=== PATIENT | female | born 1935 | race Caucasian/White ===

== ENCOUNTER 2018-10-25 02:37 | Inpatient (IN) | payer BC ==
[2018-10-25] MEDS: FUROSEMIDE 40 MG INJ IV (02:41)
[2018-10-25] MEDS: NITROGLYCERIN 2% 1 GM OINT PKT TD (02:55)
[2018-10-25 03:10] LABS: ADD MAN DIFF? NO
[2018-10-25 03:21] LABS: ABNORMAL IP MESSAGE 1; BASOPHILS % 0.3 % (0.0-2.0); EOSINOPHILS % 0.4 % (0.0-7.0); HEMATOCRIT 33.2 % (37.0-47.0); HEMOGLOBIN 11.1 g/dl (12.0-16.0); LYMPHOCYTES # 0.7 10^3/ul (0.8-2.9); LYMPHOCYTES % 10.2 % (15.0-51.0); MEAN CORPUSCULAR HEMOGLOBIN 28.5 pg (29.0-33.0); MEAN CORPUSCULAR HGB CONC 33.4 g/dl (32.0-37.0); MEAN CORPUSCULAR VOLUME 85.3 fl (82.0-101.0); MEAN PLATELET VOLUME 12.1 fl (7.4-10.4); MONOCYTE # 3.6 10^3/ul (0.3-0.9); MONOCYTES % 52.1 % (0.0-11.0); NEUTROPHIL # 2.5 10^3/ul (1.6-7.5); NEUTROPHILS % 35.9 % (39.0-77.0); PLATELET COUNT 128 10^3/UL (140-415); POSITIVE DIFF @See below; RED BLOOD COUNT 3.89 10^6/ul (4.20-5.40); RED CELL DISTRIBUTION WIDTH 11.6 % (11.5-14.5)
[2018-10-25 03:28] LABS: INR 1.18; PROTIME 15.1 Sec (11.9-14.9); PT RATIO 1.2
[2018-10-25 03:29] LABS: PARTIAL THROMBOPLASTIN TIME 30.3 Sec (23.0-35.0)
[2018-10-25 03:33] LABS: ALANINE AMINOTRANSFERASE 11 IU/L (13-69); ALBUMIN 4.7 g/dl (3.3-4.9); ALKALINE PHOSPHATASE 98 IU/L (42-121); ANION GAP 12 (5-13); ASPARTATE AMINO TRANSFERASE 29 IU/L (15-46); BILIRUBIN,INDIRECT 0.5 mg/dl (0-1.1); BILIRUBIN,TOTAL 0.5 mg/dl (0.2-1.3); BLOOD UREA NITROGEN 14 mg/dl (7-20); CALCIUM 9.5 mg/dl (8.4-10.2); CARBON DIOXIDE 26 mmol/L (21-31); CHLORIDE 100 mmol/L (97-110); CREATININE 0.57 mg/dl (0.44-1.00); GLUCOSE 204 mg/dl (70-220); POTASSIUM 3.9 mmol/L (3.5-5.1); SODIUM 138 mmol/L (135-144); TOTAL PROTEIN 8.3 g/dl (6.1-8.1)
[2018-10-25 03:45] LABS: B-TYPE NATRIURETIC PEPTIDE 1460 PG/ML (0-450); TROPONIN-I < 0.012 ng/ml (0.000-0.120)
[2018-10-25 04:01] LABS: AADO2 Arterial 139.9 mmHg (7.0-24.0); Allen Test ACCEPTAB; Arterial Base Excess -0.1 mmol/L (-3.0-3); Arterial Blood Gas Oxygen Sat 99.5 mmHG (95.0-100.0); Arterial COHb 0.3 % (0.0-3.0); Arterial Fraction of Oxyhgb 98.8 % (93.0-99.0); Arterial HCO3 25.4 mmol/L (22.0-26.0); Arterial MetHb 0.4 % (0.0-1.5); Blood Gas IEPAP 15/5; MODE MASK - BIPAP; Site Right Radial
[2018-10-25] MEDS ORDERED: ONDANSETRON 4 MG INJ IV (05:00)
[2018-10-25] MEDS ORDERED: NACL 0.9% 3 ML SYG IV (05:00)
[2018-10-25] MEDS ORDERED: NITROGLYCERIN (SL) 0.4 MG TAB SL (05:00)
[2018-10-25 06:00] LABS: CREATINE KINASE 125 IU/L (23-200)
[2018-10-25 06:09] LABS: LACTIC ACID 1.2 mmol/L (0.5-2.0)
[2018-10-25 06:12] LABS: CK INDEX 1.6; CK-MB 2.01 ng/ml (0.0-2.4)
[2018-10-25 06:28] LABS: TROPONIN-I 0.155 ng/ml (0.000-0.120)
[2018-10-25 07:50] LABS: LACTIC ACID 1.3 mmol/L (0.5-2.0)
[2018-10-25] MEDS: ASPIRIN 325 MG TAB PO (08:30)
[2018-10-25] MEDS: FUROSEMIDE 20 MG INJ IV (08:30)
[2018-10-25] MEDS: HEPARIN 5,000 UNIT/1 ML VIAL SC ×2 (08:41→22:44)
[2018-10-25] MEDS: LISINOPRIL 10 MG TAB PO ×2 (09:00→09:33)
[2018-10-25] MEDS: SOD CHLORIDE 0.9% 500 ML IV (10:36)
[2018-10-25 11:35] LABS: CREATINE KINASE 108 IU/L (23-200)
[2018-10-25 11:47] LABS: CK INDEX 2.2; CK-MB 2.42 ng/ml (0.0-2.4)
[2018-10-25 12:03] LABS: TROPONIN-I 0.499 ng/ml (0.000-0.120)
[2018-10-25] MEDS ORDERED: SOD CHLORIDE 0.9% 100 ML (16:40)
[2018-10-25] MEDS ORDERED: IOHEXOL 100 ML (16:40)
[2018-10-25] MEDS: CEFTRIAXONE 1 GM/50 ML (PMX) 50 ML IVPB (17:49)
[2018-10-25 21:50] LABS: CREATINE KINASE 131 IU/L (23-200)
[2018-10-25 21:59] LABS: CK INDEX 2.4; CK-MB 3.17 ng/ml (0.0-2.4)
[2018-10-25 22:04] LABS: TROPONIN-I 0.362 ng/ml (0.000-0.120)
[2018-10-25] MEDS: ALBUTEROL/IPRATROPIUM (NEB) 3 ML AMP HHN (22:17)
[2018-10-25] MEDS ORDERED: ALBUTEROL/IPRATROPIUM (NEB) 3 ML AMP HHN (22:30)
[2018-10-25] MEDS: hydrALAzine 20 MG INJ IV (22:32)
[2018-10-26 06:07] LABS: WHITE BLOOD COUNT 2.9 10^3/ul (4.8-10.8)
[2018-10-26 06:07] LABS: ABNORMAL IP MESSAGE 1; HEMATOCRIT 29.5 % (37.0-47.0); MEAN CORPUSCULAR HEMOGLOBIN 28.2 pg (29.0-33.0); MEAN CORPUSCULAR HGB CONC 33.9 g/dl (32.0-37.0); MEAN CORPUSCULAR VOLUME 83.1 fl (82.0-101.0); MEAN PLATELET VOLUME 12.2 fl (7.4-10.4); PLATELET COUNT 92 10^3/UL (140-415); RED BLOOD COUNT 3.55 10^6/ul (4.20-5.40); RED CELL DISTRIBUTION WIDTH 11.7 % (11.5-14.5)
[2018-10-26 06:27] LABS: POSITIVE DIFF @See below
[2018-10-26 06:28] LABS: ADD MAN DIFF? YES
[2018-10-26 06:41] LABS: ALANINE AMINOTRANSFERASE 14 IU/L (13-69); ALBUMIN 3.9 g/dl (3.3-4.9); ALBUMIN/GLOBULIN RATIO 1.25; ALKALINE PHOSPHATASE 79 IU/L (42-121); ANION GAP 15 (5-13); ASPARTATE AMINO TRANSFERASE 38 IU/L (15-46); BILIRUBIN,INDIRECT 0.2 mg/dl (0-1.1); BILIRUBIN,TOTAL 0.2 mg/dl (0.2-1.3); BLOOD UREA NITROGEN 22 mg/dl (7-20); CARBON DIOXIDE 26 mmol/L (21-31); CHLORIDE 98 mmol/L (97-110); CHOL/HDL RATIO 2.7 RATIO; CHOLESTEROL 138 mg/dl (100-200); CREATININE 0.66 mg/dl (0.44-1.00); GLUCOSE 131 mg/dl (70-220); HDL CHOLESTEROL 50 mg/dl (33-92); LDL CHOLESTEROL,CALCULATED 65 mg/dl; MAGNESIUM 1.9 mg/dl (1.7-2.5); POTASSIUM 3.1 mmol/L (3.5-5.1); SODIUM 139 mmol/L (135-144); TRIGLYCERIDES 115 mg/dl (0-149)
[2018-10-26 07:25] LABS: HEMOGLOBIN A1C 5.6 % (0-5.9)
[2018-10-26 07:35] LABS: ANISOCYTOSIS 2+ (0-0); BAND NEUTROPHILS #M 0.4 10^3/ul (0.0-0.6); BAND NEUTROPHILS % (M) 15 % (0-4); BASOPHILS % (M) 1 % (0-2); EOSINOPHILS % (M) 1 % (0-7); LYMPHOCYTES #M 0.3 10^3/ul (0.8-2.9); LYMPHOCYTES % (M) 13 % (15-51); MICROCYTOSIS 2+ (0-0); MONOCYTE #M 0.6 10^3/ul (0.3-0.9); MONOCYTES % (M) 22 % (0-11); OVALOCYTES 1+ (0-0); PLATELET ESTIMATE DECREASED; POIKILOCYTOSIS 1+ (0-0); SEG NEUT #M 1.4 10^3/ul (1.6-7.5); SEGMENTED NEUTROPHILS (M) % 48 % (39-77); SMUDGE%M 6 % (0-0)
[2018-10-26] MEDS: ASPIRIN (EC) 81 MG TAB PO (08:32)
[2018-10-26] MEDS: FUROSEMIDE 20 MG INJ IV ×2 (08:32→22:48)
[2018-10-26] MEDS: HEPARIN 5,000 UNIT/1 ML VIAL SC ×2 (08:44→22:51)
[2018-10-26] MEDS ORDERED: LATANOPROSTENE BUNOD OP (09:00)
[2018-10-26] MEDS: POTASSIUM CHLORIDE (SR) 20 MEQ TAB PO ×2 (09:57→22:47)
[2018-10-26] MEDS: PROMETHAZINE/CODEINE 5ML CUP PO (11:59)
[2018-10-26] MEDS: ACETAMINOPHEN 325 MG TAB PO (12:52)
[2018-10-26] MEDS: METHYLPREDNISOLONE 40 MG INJ IV ×2 (13:50→22:46)
[2018-10-26] MEDS: GUAIFENESIN/DM (SR) TAB PO ×2 (15:23→22:47)
[2018-10-26] MEDS: CEFTRIAXONE 1 GM/50 ML (PMX) 50 ML IVPB (16:38)
[2018-10-26] MEDS: AZITHROMYCIN 500MG/NS (PMX) 250 ML IVPB (17:21)
[2018-10-26] MEDS: ATORVASTATIN 40 MG TAB PO (22:47)
[2018-10-27 06:28] LABS: ABNORMAL IP MESSAGE 1; HEMATOCRIT 31.1 % (37.0-47.0); HEMOGLOBIN 10.6 g/dl (12.0-16.0); MEAN CORPUSCULAR HEMOGLOBIN 28.3 pg (29.0-33.0); MEAN CORPUSCULAR HGB CONC 34.1 g/dl (32.0-37.0); MEAN CORPUSCULAR VOLUME 82.9 fl (82.0-101.0); MEAN PLATELET VOLUME 11.7 fl (7.4-10.4); PLATELET COUNT 105 10^3/UL (140-415); RED BLOOD COUNT 3.75 10^6/ul (4.20-5.40); RED CELL DISTRIBUTION WIDTH 11.6 % (11.5-14.5)
[2018-10-27 06:37] LABS: ADD MAN DIFF? YES; POSITIVE DIFF @See below
[2018-10-27 06:43] LABS: ANION GAP 11 (5-13); BLOOD UREA NITROGEN 26 mg/dl (7-20); CALCIUM 9.2 mg/dl (8.4-10.2); CARBON DIOXIDE 28 mmol/L (21-31); CHLORIDE 101 mmol/L (97-110); CREATININE 0.69 mg/dl (0.44-1.00); GLUCOSE 201 mg/dl (70-220); MAGNESIUM 2.1 mg/dl (1.7-2.5); PHOSPHORUS 2.9 mg/dl (2.5-4.9); POTASSIUM 4.4 mmol/L (3.5-5.1); SODIUM 140 mmol/L (135-144)
[2018-10-27] MEDS: METHYLPREDNISOLONE 40 MG INJ IV ×3 (07:44→23:03)
[2018-10-27 09:28] LABS: ANISOCYTOSIS 1+ (0-0); BAND NEUTROPHILS #M 0.2 10^3/ul (0.0-0.6); BAND NEUTROPHILS % (M) 22 % (0-4); GIANT THROMBO% (M) 3 % (0-0); LYMPHOCYTES #M 0.2 10^3/ul (0.8-2.9); LYMPHOCYTES % (M) 25 % (15-51); MICROCYTOSIS 1+ (0-0); MONOCYTES % (M) 3 % (0-11); OVALOCYTES 1+ (0-0); PLATELET ESTIMATE DECREASED; POIKILOCYTOSIS 1+ (0-0); RBC MORPHOLOGY COMMENT @See below; SEG NEUT #M 0.5 10^3/ul (1.6-7.5); SEGMENTED NEUTROPHILS (M) % 50 % (39-77); SMUDGE%M 14 % (0-0); WBC MORPHOLOGY COMMENT @See below
[2018-10-27] MEDS: ASPIRIN (EC) 81 MG TAB PO (10:01)
[2018-10-27] MEDS: GUAIFENESIN/DM (SR) TAB PO ×2 (10:01→21:21)
[2018-10-27] MEDS: FUROSEMIDE 20 MG INJ IV (10:01)
[2018-10-27] MEDS: HEPARIN 5,000 UNIT/1 ML VIAL SC ×2 (10:10→23:23)
[2018-10-27] MEDS: REGADENOSON 0.4 MG/5 ML SYG (10:53)
[2018-10-27] MEDS: CEFTRIAXONE 1 GM/50 ML (PMX) 50 ML IVPB (16:40)
[2018-10-27] MEDS: LISINOPRIL 5 MG TAB PO (17:39)
[2018-10-27] MEDS: AZITHROMYCIN 500MG/NS (PMX) 250 ML IVPB (17:39)
[2018-10-27] MEDS: hydrALAzine 20 MG INJ IV (21:21)
[2018-10-27] MEDS: ATORVASTATIN 40 MG TAB PO (21:23)
[2018-10-27] MEDS: LATANOPROST 0.005% 2.5 ML OPH BOTH EYES (21:31)
[2018-10-28] MEDS: ALBUTEROL/IPRATROPIUM (NEB) 3 ML AMP HHN ×6 (01:49→20:02)
[2018-10-28] MEDS: FUROSEMIDE 20 MG INJ IV (02:15)
[2018-10-28] MEDS: METHYLPREDNISOLONE 40 MG INJ IV ×2 (06:15→22:04)
[2018-10-28] MEDS: ASPIRIN (EC) 81 MG TAB PO (08:34)
[2018-10-28] MEDS: GUAIFENESIN/DM (SR) TAB PO ×2 (08:35→22:04)
[2018-10-28] MEDS: FUROSEMIDE 20 MG TAB PO ×2 (08:35→17:31)
[2018-10-28] MEDS: LISINOPRIL 5 MG TAB PO ×2 (08:35→22:05)
[2018-10-28] MEDS: HEPARIN 5,000 UNIT/1 ML VIAL SC ×2 (08:36→22:17)
[2018-10-28] MEDS: AZITHROMYCIN 500 MG TAB PO (16:01)
[2018-10-28] MEDS: CEFTRIAXONE 1 GM/50 ML (PMX) 50 ML IVPB (16:01)
[2018-10-28] MEDS: ATORVASTATIN 40 MG TAB PO (22:04)
[2018-10-28] MEDS: LATANOPROST 0.005% 2.5 ML OPH BOTH EYES (22:06)
[2018-10-29] MEDS: ALBUTEROL/IPRATROPIUM (NEB) 3 ML AMP HHN ×6 (00:12→21:17)
[2018-10-29] MEDS: hydrALAzine 20 MG INJ IV ×2 (01:44→18:34)
[2018-10-29] MEDS: FUROSEMIDE 20 MG TAB PO ×2 (05:24→17:48)
[2018-10-29] MEDS: GUAIFENESIN/DM (SR) TAB PO ×2 (09:36→20:52)
[2018-10-29] MEDS: AZITHROMYCIN 500 MG TAB PO (09:36)
[2018-10-29] MEDS: ASPIRIN (EC) 81 MG TAB PO (09:36)
[2018-10-29] MEDS: METHYLPREDNISOLONE 40 MG INJ IV ×2 (09:37→20:52)
[2018-10-29] MEDS: LISINOPRIL 5 MG TAB PO ×2 (09:37→20:53)
[2018-10-29] MEDS: HEPARIN 5,000 UNIT/1 ML VIAL SC ×2 (09:45→20:55)
[2018-10-29] MEDS: CEFTRIAXONE 1 GM/50 ML (PMX) 50 ML IVPB (17:48)
[2018-10-29] MEDS: ATORVASTATIN 40 MG TAB PO (20:53)
[2018-10-29] MEDS: LATANOPROST 0.005% 2.5 ML OPH BOTH EYES (20:56)
[2018-10-30] MEDS: ALBUTEROL/IPRATROPIUM (NEB) 3 ML AMP HHN ×5 (02:04→16:53)
[2018-10-30] MEDS: LATANOPROSTENE BUNOD 0.024% BOTH EYES (02:55)
[2018-10-30] MEDS: FUROSEMIDE 20 MG TAB PO ×2 (06:43→17:56)
[2018-10-30] MEDS: GUAIFENESIN/DM (SR) TAB PO (08:52)
[2018-10-30] MEDS: ASPIRIN (EC) 81 MG TAB PO (08:53)
[2018-10-30] MEDS: LISINOPRIL 5 MG TAB PO (08:53)
[2018-10-30] MEDS: METHYLPREDNISOLONE 40 MG INJ IV (08:53)
[2018-10-30] MEDS: HEPARIN 5,000 UNIT/1 ML VIAL SC (09:17)
[2018-10-30 10:42] LABS: ABNORMAL IP MESSAGE 1; HEMATOCRIT 30.6 % (37.0-47.0); HEMOGLOBIN 10.2 g/dl (12.0-16.0); MEAN CORPUSCULAR HEMOGLOBIN 27.9 pg (29.0-33.0); MEAN CORPUSCULAR HGB CONC 33.3 g/dl (32.0-37.0); MEAN CORPUSCULAR VOLUME 83.8 fl (82.0-101.0); MEAN PLATELET VOLUME 12.9 fl (7.4-10.4); NUCLEATED RED BLOOD CELLS% 0.6 /100WBC (0.0-0.0); RED BLOOD COUNT 3.65 10^6/ul (4.20-5.40); RED CELL DISTRIBUTION WIDTH 11.5 % (11.5-14.5)
[2018-10-30 10:42] LABS: WHITE BLOOD COUNT 3.2 10^3/ul (4.8-10.8)
[2018-10-30 10:51] LABS: PLATELET COUNT 79 10^3/UL (140-415); POSITIVE DIFF @See below
[2018-10-30 10:52] LABS: ADD MAN DIFF? YES
[2018-10-30] MEDS: AZITHROMYCIN 500 MG TAB PO (11:00)
[2018-10-30 11:43] LABS: ANISOCYTOSIS 2+ (0-0); BAND NEUTROPHILS #M 0.3 10^3/ul (0.0-0.6); BAND NEUTROPHILS % (M) 10 % (0-4); BURR CELLS 1+ (0-0); LYMPHOCYTES #M 0.3 10^3/ul (0.8-2.9); LYMPHOCYTES % (M) 12 % (15-51); METAMYELOCYTES %M 1 % (0-0); MICROCYTOSIS 2+ (0-0); MONOCYTE #M 0.1 10^3/ul (0.3-0.9); MONOCYTES % (M) 4 % (0-11); OVALOCYTES 1+ (0-0); PLATELET ESTIMATE DECREASED; POIKILOCYTOSIS 2+ (0-0); POLYCHROMASIA 2+ (0-0); REACTIVE LYMPHOCYTES #M 0.2 10^3/ul (0.0-0.0); REACTIVE LYMPHOCYTES% (M) 7 % (0-0); SEG NEUT #M 2.1 10^3/ul (1.6-7.5); SEGMENTED NEUTROPHILS (M) % 66 % (39-77); SMUDGE%M 19 % (0-0)
[2018-10-30] MEDS: CEFTRIAXONE 1 GM/50 ML (PMX) 50 ML IVPB ×2 (17:00)
[2018-10-30] MEDS: hydrALAzine 20 MG INJ IV (17:56)
[2018-10-31] MEDS ORDERED: predniSONE 10 MG TAB PO (09:00)
== END 2018-10-30 18:29 | disposition home health service (06) | DRG 280 ==
LOC: 6WM 20:39 → E/R 02:37 → 6WM 04:06
PROC: C22G1ZZ Tomographic (Tomo) Nuclear Medicine Imaging of Myocardium using Technetium 99m (Tc-99m) (ICD-10-PCS; principal; 2018-10-27)
DX: I21.A1 Myocardial infarction type 2 (principal); J96.21 Acute and chronic respiratory failure with hypoxia; I50.33 Acute on chronic diastolic (congestive) heart failure; D61.818 Other pancytopenia; J40 Bronchitis, not specified as acute or chronic; J06.9 Acute upper respiratory infection, unspecified; J44.9 Chronic obstructive pulmonary disease, unspecified; Z77.110 Contact with and (suspected) exposure to air pollution; I11.0 Hypertensive heart disease with heart failure
CPT/HCPCS: 36415; 36600; 71045; 71275; 78452; 80048; 80053; 80061; 82550; 82553; 82803; 83036; 83605; 83735; 83880; 84100; 84443; 84484; 85025; 85610; 85730; 87040; 87400; 93005; 93017; 93306; 94640; 94660; 94664; 96374; 97162; 99291-25